=== PATIENT | male | born 1955 | race Caucasian/White ===

== ENCOUNTER 2016-06-25 09:01 | Day surgery (SDC) | payer OTHER ==
[~2016-06-25] VITALS: Ht 177.8 cm; Wt 109.6 kg
[~2016-06-25 09:01] MED LIST: ASPI-973 PO; BRIM10DR14 AFFECT_EYE; CARV25TA2 PO; DORZ10DR22 AFFECT_EYE; GLPZ5T PO; INSU100I13 SUBQ; LATA2.5D6 AFFECT_EYE; LIP40 PO; LISI-571 PO; Lactated Ringer's 1,000 ML IV SCH; Lidocaine-Prilo 2.5-2.5% 30 Gm Cream TOPICAL ONE; METF1000 PO; OXYC1TAB24 PO; PARO40TA3 PO; PROM25TA14 PO; TAMS0.4C98 PO
[2016-06-25] MEDS ORDERED: MetoCLOpramide 5 mg/mL 2 mL Inj ONE (09:02)
[2016-06-25] MEDS ORDERED: Lidocaine PF 1% 30 mL Inj ONE (09:02)
[2016-06-25] MEDS ORDERED: Ondansetron 2 mg/mL 2 mL Inj ONE (09:02)
[2016-06-25] MEDS ORDERED: Propofol 10,000 mCg/mL 20 mL Inj ONE (09:02)
[2016-06-25] MEDS ORDERED: fentaNYL-PF 50 mCg/mL 2 mL Inj ONE (09:02)
[2016-06-25] MEDS ORDERED: Lactated Ringer's 1,000 ML IV ONE (09:49)
[2016-06-25 09:55] VITALS: BP 132/75; PULSE 63; RESP 16; O2SAT 97
--- NOTE | 2016-06-25 10:23 | PCM.HPANE ---
Patient Data Date of Service: Jun 25, 2016 Surgeon Admitting Provider: Attending Provider:Treasure Alvarez MD Primary Care Physician:Treasure Lowe PA-C Other Provider:Malia Valera Anesthesia Reason for Visit Right Kidney Stone Ht/WT & BMI Height (Feet): 5 Height (Inches): 10 Weight (Kilograms): 109.6 Body Mass Index 34.00 Allergies Coded Allergies: Penicillins (Verified Allergy, Unknown, SWELLING, 06/25/16) iodine (Verified Allergy, Unknown, SWELLING, 06/25/16) Uncoded Allergies: SHELLFISH (Allergy, Unknown, SWELLING, 06/25/16) Past Anesthesia History Anesthesia History: Denies:: Anesthesia Reactions, Malignant Hyperthermia Diabetes History Hx Diabetes?: Yes Type of Diabetes: Type II Glycemic Control: Insulin & Oral Medication Current Bedside Blood Glucose: 114 MRSA MRSA: No Medications Blood Thinner: Aspirin Hypertension Medication: Yes Home Meds Incl Beta Stella: Yes (CARVEDILOL) Date Beta Stella Taken: Jun 25, 2016 Time Beta Stella Taken: 08 Reported Medications Tamsulosin (Flomax)0.4 Mg Capsule0.4 Mg PO DAILY Ref 0 12/18/15 oxyCODONE-Acetaminophen 5-325 mg 1 Each Tablet1-2 Tab PO Q4H PRN For Pain Ref 0 12/18/15 Carvedilol 25 Mg [id number] Mg PO BID Ref 0 12/18/15 Atorvastatin (Lipitor)40 Mg Udgvyu59 Mg PO DAILY Ref 0 12/18/15 Paroxetine 40 Mg Knjqbt38 Mg PO HS 30 Days Ref 0 12/18/15 Metformin (Glucophage)1,000 Mg Tablet1,000 Mg PO BID Ref 0 12/18/15 Lisinopril 5 Mg Tablet5 Mg PO DAILY #30 TABLET Ref 0 12/18/15 Latanoprost 2.5 Ml Drops1 Gtt AFFECT_EYE HS #1 BOTTLE 12/18/15 Glipizide 5 Mg Tablet2.5 Mg PO DAILY 30 Days 12/18/15 Dorzolamide HCl/Timolol Maleat (Cosopt Eye Drops)10 Ml Drops1-2 Drp AFFECT_EYE BID 12/18/15 Brimonidine Tartrate (Brimonidine 0.15% Oph Soln)10 Ml Drops1 Drop AFFECT_EYE TID #1 BOTTLE Ref 0 12/18/15 Aspirin 81 Mg Mzgcik71 Mg PO DAILY Ref 0 12/18/15 Discontinued Reported Medications Promethazine 25 Mg Xrpmbf66 Mg PO Q6H PRN For Nausea Ref 0 12/18/15 Insulin Glargine (Lantus U100 Solostar Insulin Pen)100 Unit/1 Ml Insuln.pen1 Unit SUBQ QPM #1 PENINJ Ref 0 12/18/15 History History of ENT Problems?: No HEENT History: Positive for:: Glaucoma Hx of Heart Problems?: Yes Cardiovascular History: Positive for:: Congestive Heart Failure Coronary Artery Disease Heart Murmur (MPS 04/2003 EF 73%) Hypertension (HYPERLIPIDEMIA) Denies:: Atrial Fibrillation Chest Pain Other Cardiac History: no recurrence of symptoms that led to his stent; no nitroglycerin use; no SOB Hx of Respiratory Problem?: No Respiratory History: Positive for:: Pulmonary Embolism Use of C-PAP Machine Denies:: Oxygen Administration Other Resp Pertinent History: 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 Pressure Ulcers Hx Musculoskeletal Problems?: No Hx of Psycho/Social Problems?: No Psycho Social History: Denies:: Anxiety Hx Surgeries?: Yes (ESWL) Hx Any Other Health Problems?: Yes Other History: Denies:: Cancer Endocrine Disease (C/OF NIGHT SWEATS) Thyroid Disease History Blood Transfusions: Denies:: Blood Transfusions Hx Diabetes: YesBedside Blood Glucose: 114 Hx Alcohol Use: NoHx Substance Use: No Smoking Status: Former Smoker Have You Smoked inLast 12 mo: No Stop/Bang Treated for Sleep Apnea?: Yes Do You Have a CPAP Machine?: Yes S-Snoring: Do You Snore Loudly: No T-Tired: feel tired, fatigued: No O-Obsered: Observed not breath: Yes P-Blood Pressure: treated: Yes B- Body Mass Index > 35 kg/m2: Yes A- Age over 50: Yes N- Neck Large Circumference: No G- Gender Male: Yes ASHANTI Risk Assessment: High Risk, =/>3 Yes ASHANTI Category 1: Yes Risk Assessment Category Category 1A: Patient has history of documented sleep apnea, and HAS NOT received any narcotic, sedative or anesthesia administration during this stay. Category 1B: Patient has history of documented sleep apnea, and HAS received any narcotic , sedative or anesthesia administration during this stay Category 2: Patient has SUSPECTED Obstructive Sleep Apnea, and HAS received any narcotic , sedative or anesthesia administration during this stay. Category 3: Patient has SUSPECTED Obstructive Sleep Apnea and HAS NOT received narcotic, sedative or anesthesia administration during this stay. Category 4: Outpatient in Procedural Areas with known sleep apnea or who screen positive for High Risk via the STOP/BANG questionnaire. Exam Exam Vital Signs Vital Signs Date Time Temp Pulse Resp B/P Pulse Ox O2 Delivery O2 Flow Rate FiO2 06/25/16 09:55 36 63 16 132/75 97 Room Air General Appearance: Alert, Oriented X3, Cooperative, No Acute Distress HEENT/AIRWAY: MP 2, Neck Movement (short thick FROM), Mouth Opening (3), Other (TMD<3 significant overbite >1cm) Lungs: Wheezes (RUL mild wheeze) Heart: Exam Unremarkable, Regular Rate/Rhythm, Normal S1, Normal S2, No Murmurs /Rubs/Gallops Meds/Labs/Diagnostics Admission Meds Current Medications Lactated Ringer's (Lr) 1,000 ml @ ud STK-MED ONCE IV Last administered on 06/25t 09:49; Start 06/25/16 at 09:49; Stop 06/25/16 at 09:50; Status DC Bedside Blood Glucose: 114 Plan Impression Patient chart reviewed, patient interviewed and anesthestic plan with risks, benefits, and alternatives discussed, and informed consent obtained. NPO Status: 82906/25/16 ASA Physical Status: ASA3 Severe Disease Anesthetic Plan: GA Bene/Risks/Altern/Consents: Yes HP Complete Prior to Induction: Yes Shaun Miranda MD Jun 25, 2016 10:23
[2016-06-25] MEDS ORDERED: Lactated Ringer's 1,000 ML IV SCH (11:17)
[2016-06-25] MEDS ORDERED: Lactated Ringer's 500 ML IV PRN (11:17)
[2016-06-25] MEDS ORDERED: Dexamethasone 4 mg/mL Inj IVPUSH PRN (11:20)
[2016-06-25] MEDS ORDERED: fentaNYL-PF 50 mCg/mL 2 mL Inj IVPUSH PRN (11:20)
[2016-06-25] MEDS ORDERED: Ondansetron 2 mg/mL 2 mL Inj IVPUSH PRN (11:20)
[2016-06-25] MEDS ORDERED: Phenylephrine 10,000 mCg/mL Inj IVPUSH PRN (11:20)
[2016-06-25] MEDS ORDERED: HYDROmorphone 1 mg/mL Inj IVPUSH PRN (11:20)
[2016-06-25] MEDS ORDERED: EPHEDrine Sulfate 50 mg/mL Inj IVPUSH PRN (11:20)
[2016-06-25] MEDS ORDERED: MetoCLOpramide 5 mg/mL 2 mL Inj IVPUSH PRN (11:20)
[2016-06-25 11:48] VITALS: BP 121/64; PULSE 72; RESP 14; O2SAT 99
[2016-06-25] MEDS ORDERED: HYDROcodone-APAP 5-325 mg Tablet PO PRN (11:50)
[2016-06-25] MEDS ORDERED: Ondansetron 8 mg ODT Tablet PO PRN (11:50)
[2016-06-25 11:55] VITALS: BP 118/70; PULSE 70; RESP 14; O2SAT 97
--- NOTE | 2016-06-25 12:01 | DRSVH ---
PROCEDURE: X-RAY KUB ([id number]) INDICATIONS: RIGHT KIDNEY STONE TECHNIQUE: One view of the abdomen acquired. COMPARISON: [facility], CR, XR KUB, 06/17/2016, 10:02. FINDINGS: Surgical changes and devices: None. Bowel: Bowel gas pattern is normal. Soft tissues: 7 mm calcification again seen projected over the interpolar right kidney. Bones: No suspicious bony lesions. IMPRESSION: Small calcifications are seen projected over the inferior pole of the right kidney. Dictated by: Tevin Calhoun RRA Interpreted: Serene Tanner MD on 06/25/2016 at 12:00 Transcribed by: BRET on 06/25/2016 at 12:01 Approved by: Serene Tanner MD, PhD on 06/25/2016 at 17:29
[2016-06-25 12:10] VITALS: BP 120/66; PULSE 76; RESP 14; O2SAT 96
[2016-06-25 12:18] VITALS: BP 126/76; PULSE 76; RESP 16; O2SAT 95
[2016-06-25 12:21] VITALS: BP 129/77; PULSE 71; RESP 16; O2SAT 93
--- NOTE | 2016-06-25 14:22 | PCM.ANEP2 ---
Post Anesthesia Evaluation ASA/CMS Post Anesthesia VS in Patient's Normal Range?: Yes Resp Stable; Airway Patent?: Yes CV Function & Hydration Stable: Yes Mental Status Recovered?: Yes Pain control Satisfactory?: Yes N/V Control Satisfactory?: Yes Shaun Miranda MD Jun 25, 2016 14:22
--- NOTE | 2016-06-25 14:22 | PCM.ANEP1 ---
Post Anesthesia Phase 1 PACU Phase 1 Assessment Date of Service: Jun 25, 2016 Vital Signs Vital Signs Date Time Temp Pulse Resp B/P Pulse Ox O2 Delivery O2 Flow Rate FiO2 06/25/16 12:21 71 16 129/77 93 Room Air 06/25/16 12:18 36.4 76 16 126/76 95 Room Air 06/25/16 12:10 76 14 120/66 96 Nasal Cannula 2 06/25/16 11:55 70 14 118/70 97 Nasal Cannula 2 06/25/16 11:48 36.4 72 14 121/64 99 Simple Mask 8 06/25/16 09:55 36 63 16 132/75 97 Room Air Anesthetic Administered: GA Level of Alertness: Awake, talking PIERRE's with Equal Strength: Yes Pain: No Pain Scale Score: 0 Nausea or Vomiting: No Oxygen Delivery: Simple Mask Lungs: Wheezes (RUL mild wheeze) Shaun Miranda MD Jun 25, 2016 14:22
--- NOTE | 2016-06-25 19:51 | OP ---
[address] [address] OPERATIVE REPORT PATIENT: TRI REEDER : 1955 MR#: [id number] ADMIT: 06/25/2016 JOB ID: [id number] DATE OF SURGERY: 06/25/2016 PROCEDURE: Extracorporeal shock wave lithotripsy on the right. SURGEON: Treasure Alvarez MD ANESTHESIA: General, Dr. Miranda PREOPERATIVE DIAGNOSIS(ES): Nonobstructing right-sided renal calculus. POSTOPERATIVE DIAGNOSIS(ES): Nonobstructing right-sided renal calculus. INDICATIONS: The patient is a 61-year-old gentleman with a history of nephrolithiasis status post treatment on the left wishing to proceed with treatment of a not obviously obstructing stone on the right, at 0.6-0.7 mm in diameter, electing shockwave lithotripsy. PROCEDURE IN DETAIL: After appropriate informed consent was obtained, the patient was brought to the operating room. SCDs were placed. Adequate general anesthesia was induced. He was carefully placed in the supine position and appropriately positioned on the shockwave table. The fluoroscope was brought in. The stone itself was readily visible and was targeted. He was treated ultimately with 2000 shocks with a pause after 200. Power levels used were 4 escalating to 8. Rate was 60 escalating ultimately to 90 as the stone appeared to be breaking up very nicely. Treatment effect appeared to be very good. He tolerated procedure well. Skin condition was excellent. He was awakened and taken in stable condition back to the postanesthesia care unit.
== END 2016-06-25 23:59 | disposition home or self-care (01) ==
LOC: SAS 09:01
PROVIDERS: ATTEND Urology
DX: N20.0 Calculus of kidney (principal); E11.9 Type 2 diabetes mellitus without complications; I10 Essential (primary) hypertension; I25.10 Atherosclerotic heart disease of native coronary artery without angina pectoris; Z79.82 Long term (current) use of aspirin; Z79.899 Other long term (current) drug therapy; Z87.891 Personal history of nicotine dependence; Z86.711 Personal history of pulmonary embolism
CPT/HCPCS: 50590; 74000; J2250; J2405; J2765; J7120